=== PATIENT | male | born 1950 | race Caucasian/White ===

== ENCOUNTER 2016-04-06 11:30 | Day surgery (SDC) | payer OTHER ==
[~2016-04-06] VITALS: Ht 172.7 cm; Wt 77.1 kg
[~2016-04-06 11:30] MED LIST: CREST10T PO; CYCL10TA9 PO; FURO40TA4 PO; HYDR-4003 PO; LISI-567 PO; Lactated Ringer's 1,000 ML IV ONE; METO-272 PO; NITR0.4T SL; OMEG-38 PO; POLY17PO6 PO; RANI150C4 PO; RED600CA2 PO; SPIR25TA3 PO; ZOLP10TA5 PO
[2016-04-06 12:08] VITALS: BP 137/70; PULSE 59; RESP 19; O2SAT 97
[2016-04-06] MEDS ORDERED: Lactated Ringer's 1,000 ML IV SCH (12:57)
--- NOTE | 2016-04-06 12:57 | PCM.HPANE ---
Patient Data Date of Service: Apr 06, 2016 Surgeon Admitting Provider: Attending Provider:Carlos Ontiveros MD Primary Care Physician:Arash Miller MD Other Provider:Cherelle Banuelos Anesthesia Reason for Visit Constipation Ht/WT & BMI Height (Feet): 5 Height (Inches): 8 Weight (Kilograms): 77.11 Body Mass Index 25.00 Allergies Coded Allergies: No Known Allergies (Unverified , 04/05/16) Past Anesthesia History Anesthesia History: Denies:: Anesthesia Reactions, Malignant Hyperthermia Diabetes History Hx Diabetes?: No MRSA MRSA: No Medications Hypertension Medication: Yes Home Meds Incl Beta Annie: Yes Date Beta Annie Taken: Apr 05, 2016 Time Beta Annie Taken: 2300 Reported Medications Zolpidem 10 Mg Pwpzxc39 Mg PO HS PRN For Insomnia Ref 0 04/05/16 Spironolactone 25 Mg Hbwqeg77 Mg PO DAILY #30 TABLET Ref 0 04/05/16 Ranitidine 150 Mg Pfjbtbu821 Mg PO DAILY PRN For Indigestion Ref 0 04/05/16 Nitroglycerin SL (Nitrostat)0.4 Mg Tab.subl0.4 Mg SL Q5MIN PRN For Chest Pain # 1 BOTTLE 04/05/16 Polyethylene Glycol 3350 (Miralax)17 Gm Powd.pack17 Gm PO DAILY 04/05/16 Metoprolol Succinate ER 50 Mg Tab.er.24h75 Mg PO BID Ref 0 04/05/16 Lisinopril 20 Mg Fnssqd41 Mg PO DAILY 30 Days Ref 0 04/05/16 Hydrocodone-Acetaminophen 5-325 mg 1 Each Tablet1 Tablet PO BID PRN For Pain Ref 0 04/05/16 Furosemide 40 Mg Gxeuuw62 Mg PO DAILY 04/05/16 Cyclobenzaprine 10 Mg Nltipn32 Mg PO HS PRN Spasm Ref 0 04/05/16 Discontinued Reported Medications Red Yeast Rice 600 Mg Gtkbblz595 Mg PO DAILY 04/05/16 [place]-3/Dha/Epa/Fish Oil (Fish Oil 1,000 mg Softgel)1 Each Capsule1 Each PO BID 04/05/16 Rosuvastatin Calcium (Crestor)10 Mg Zuknib49 Mg PO DAILY 30 Days Ref 0 04/05/16 History Denture Type: Full- Upper Hx of Heart Problems?: Yes Cardiovascular History: Positive for:: AICD Chest Pain (HX OF, last nitroglycerin 1 year ago. > 4 METS) Hypertension Pacemaker (recs received) Hx of Respiratory Problem?: No Hx Neurologic Problems?: No Neurological History: Denies:: CVA Hx of GI Problems?: No Gastrointestinal History: Positive for:: Rectal Bleeding (POSITIVE OCULT) Denies:: Cirrhosis Gall Bladder Disease Gastroesphageal Reflux Liver Disease Hx of Problems?: No Hx Musculoskeletal Problems?: No Musculoskeletal History: Denies:: Joint Replacement Hx of Psycho/Social Problems?: No Psycho Social History: Denies:: Anxiety Hx Depression Hx Surgeries?: Yes (HAND AND SHOULDER) Hx Any Other Health Problems?: Yes Hx Diabetes: No Hx Alcohol Use: Yes (OCCASIONALLY, 1-3 BEERS NIGHTLY)Hx Substance Use: No Smoking Status: Former Smoker Stop/Bang Treated for Sleep Apnea?: Yes (SAYS STUDY HAS BEEN DONE - AWAITING RESULTS) Do You Have a CPAP Machine?: No (NO MACHINE GIVEN TO PATIENT YET) S-Snoring: Do You Snore Loudly: No T-Tired: feel tired, fatigued: Yes O-Obsered: Observed not breath: Yes P-Blood Pressure: treated: Yes B- Body Mass Index > 35 kg/m2: No A- Age over 50: Yes N- Neck Large Circumference: No G- Gender Male: Yes JASPER Total Score: 5 JASPER Risk Assessment: High Risk, =/>3 Yes Risk Assessment Category Category 1A: Patient has history of documented sleep apnea, and HAS NOT received any narcotic, sedative or anesthesia administration during this stay. Category 1B: Patient has history of documented sleep apnea, and HAS received any narcotic , sedative or anesthesia administration during this stay Category 2: Patient has SUSPECTED Obstructive Sleep Apnea, and HAS received any narcotic , sedative or anesthesia administration during this stay. Category 3: Patient has SUSPECTED Obstructive Sleep Apnea and HAS NOT received narcotic, sedative or anesthesia administration during this stay. Category 4: Outpatient in Procedural Areas with known sleep apnea or who screen positive for High Risk via the STOP/BANG questionnaire. Exam Exam Vital Signs Vital Signs Date Time Temp Pulse Resp B/P Pulse Ox O2 Delivery O2 Flow Rate FiO2 04/06/16 12:08 37.1 59 19 137/70 97 Room Air General Appearance: Alert, Oriented X3, Cooperative HEENT/AIRWAY: MP 2, Neck Movement (Full), Mouth Opening Lungs: Clear to Auscultation, Normal Air Movement Heart: Regular Rate/Rhythm, Normal S1, Normal S2 Plan Impression Patient chart reviewed, patient interviewed and anesthestic plan with risks, benefits, and alternatives discussed, and informed consent obtained. NPO Status: > 8 hours ASA Physical Status: ASA3 Severe Disease Anesthetic Plan: MAC Bene/Risks/Altern/Consents: Yes HP Complete Prior to Induction: Yes Sourav Krishnamurthy MD Apr 06, 2016 12:57
[2016-04-06] MEDS ORDERED: MetoCLOpramide 5 mg/mL 2 mL Inj IVPUSH PRN (13:00)
[2016-04-06] MEDS ORDERED: Propofol 10,000 mCg/mL 20 mL Inj ONE (13:00)
[2016-04-06] MEDS ORDERED: Ondansetron 2 mg/mL 2 mL Inj IVPUSH PRN (13:00)
[2016-04-06 13:27] VITALS: BP 115/92; RESP 14; O2SAT 94
--- NOTE | 2016-04-06 13:34 | PCM.ANEP1 ---
Post Anesthesia Phase 1 PACU Phase 1 Assessment Date of Service: Apr 06, 2016 Vital Signs Vital Signs Date Time Temp Pulse Resp B/P Pulse Ox O2 Delivery O2 Flow Rate FiO2 04/06/16 13:27 14 115/92 94 Room Air 04/06/16 12:08 37.1 59 19 137/70 97 Room Air Anesthetic Administered: MAC Level of Alertness: Awake, talking MENDOZA's with Equal Strength: Yes Pain: No Nausea or Vomiting: No Oxygen Delivery: Room Air Lungs: Normal Air Movement Sourav Krishnamurthy MD Apr 06, 2016 13:34
[2016-04-06 13:41] VITALS: BP 113/80; PULSE 65; RESP 16; O2SAT 96
--- NOTE | 2016-04-06 13:41 | PCM.ANEP2 ---
Post Anesthesia Evaluation ASA/CMS Post Anesthesia Date of Service: Apr 06, 2016 VS in Patient's Normal Range?: Yes Resp Stable; Airway Patent?: Yes CV Function & Hydration Stable: Yes Mental Status Recovered?: Yes Pain control Satisfactory?: Yes N/V Control Satisfactory?: Yes Sourav Krishnamurthy MD Apr 06, 2016 13:41
[2016-04-06 13:42] VITALS: BP 152/69; PULSE 60; RESP 16; O2SAT 97
--- NOTE | 2016-04-06 14:38 | ENDO ---
[address] [address] ENDOSCOPY PROCEDURE PATIENT: REGI OAKLEY : 1950 MR#: [id number] ADMIT: 04/06/2016 JOB ID: [id number] DATE: 04/06/2016 TYPE OF OPERATION: Colonoscopy with snare polypectomy and biopsy. PREOPERATIVE DIAGNOSIS(ES): Constipation. POSTOPERATIVE DIAGNOSIS(ES): 1. There was a broad-based 5 mm cecal polyp, status post normal saline pillow lift followed by hot snare polypectomy and biopsy. 2. Small internal hemorrhoids. ANESTHESIA: Monitored anesthesia care. COMPLICATIONS: None. BLOOD LOSS: Minimal. DESCRIPTION OF PROCEDURE: After risks and benefits have been explained to the patient, informed consent was obtained. After anesthesia administered, colonoscope was then inserted from the rectum to the cecum. Mucosa carefully examined. The prep of the patient was excellent. After the procedure was done, the scope was withdrawn and the procedure terminated. FINDINGS: Upon inspection of the anus, no masses, hemorrhoids, ulcers, or fissures that were seen. Throughout the entire examination, there is a 5 mm broad-based cecal polyp that was first injected with normal saline pillow lift, followed by hot snare polypectomy and biopsy. Retroflexion showed small internal hemorrhoids. IMPRESSION: 1. Small internal hemorrhoids. 2. A 5 mm broad-based cecal polyp, status post normal saline pillow lift followed by hot snare polypectomy. RECOMMENDATIONS: 1. Await pathology results. 2. If tubular adenoma, then next colonoscopy in five years.
--- NOTE | 2016-04-07 13:49 | PATH ---
SURGICAL PATHOLOGY Attending Physician:Carlos Ontiveros MD CASE STATUS: Signed Out PATIENT NAME: REGI OAKLEY PID: [id number] : 1950 DATE COLLECTED:04/06/2016 19:46 SPECIMEN: Colon, Biopsy CLINICAL HISTORY: CECAL POLYP FINAL DIAGNOSIS: Cecal Polyp: Tubular adenoma involving multiple biopsy fragments. ICD10 D12.0 GROSS DESCRIPTION: The specimen is received in one formalin filled container labeled with the patient's name, sublabeled "cecal polyp" and consists of 4 portions of tissue which aggregate to 0.4 x 0.4 x 0.3 CM. The specimen is entirely submitted in one cassette. 04/06/2016 [facility] ICD-9 CODES: CPT CODES: 1: 53899 Electronically Signed Out Robert Campos MD [facility] Pathology [facility] [address], [place] [address] Technical component performed at [facility], [facility] [address], [place], [address]
== END 2016-04-06 23:59 | disposition home or self-care (01) ==
LOC: END 11:30
PROVIDERS: ATTEND Internal Medicine Gastroenterology
DX: D12.0 Benign neoplasm of cecum (principal); K64.8 Other hemorrhoids; K59.00 Constipation, unspecified; I25.10 Atherosclerotic heart disease of native coronary artery without angina pectoris; I25.5 Ischemic cardiomyopathy; I10 Essential (primary) hypertension; G47.33 Obstructive sleep apnea (adult) (pediatric); F43.12 Post-traumatic stress disorder, chronic; K21.9 Gastro-esophageal reflux disease without esophagitis; E78.2 Mixed hyperlipidemia; Z95.810 Presence of automatic (implantable) cardiac defibrillator; Z87.891 Personal history of nicotine dependence; Z79.891 Long term (current) use of opiate analgesic
CPT/HCPCS: 45385; J7120